=== PATIENT | male | born 1945 | race African-American/Black ===

== ENCOUNTER 2023-12-28 12:17 | Emergency (ER) | payer MEDICARE, OTHER ==
[~2023-12-28] VITALS: Ht 170.2 cm; Wt 77.7 kg
[2023-12-28] MEDS ORDERED: htn PO (12:24)
[2023-12-28] MEDS: KETOROLAC TROMETHAMINE 30 MG/ML VIAL IM ONE (15:58)
[2023-12-28 16:20] LABS: BASOPHILS % (AUTO) 0.8 % (0.0-2.0); EOSINOPHILS % (AUTO) 1.5 % (1.0-6.0); HEMATOCRIT 46.2 % (41-53); HEMOGLOBIN 15.5 g/dL (13.5-17.5); LYMPHOCYTES % (AUTO) 22.3 % (22.0-44.0); MEAN CORPUSCULAR HEMOGLOBIN 30.3 pg (26.0-34.0); MEAN CORPUSCULAR HGB CONC 33.6 G/dL (31.0-37.0); MEAN CORPUSCULAR VOLUME 90 fL (80-100); MONOCYTES # (AUTO) 0.9 K/uL (0.1-1.0); NEUTROPHILS # (AUTO) 5.8 K/uL (1.8-7.7); NEUTROPHILS % (AUTO) 65.4 % (40.0-70.0); PLATELET COUNT (AUTO) 231 K/uL (150-450); RED BLOOD CELL COUNT(AUTO) 5.12 MIL/uL (4.50-5.90); RED CELL DISTRIBUTION WIDTH 14.5 % (11.5-14.5); WHITE BLOOD COUNT (AUTO) 8.9 K/uL (4.5-11.0)
[2023-12-28 16:32] LABS: CALCIUM, TOTAL 9.1 mg/dL (8.8-10.5); CREATININE 1.45 mg/dL (0.60-1.30); POTASSIUM 3.2 mmol/L (3.5-5.1)
[2023-12-28 16:39] LABS: TROPONIN I-HIGH SENSITIVITY 11 ng/L (<76)
[2023-12-28] MEDS: POTASSIUM CHLORIDE 20 MEQ ER TABLET PO ONE (17:40)
[2023-12-28] MEDS: PredniSONE 20 MG TABLET PO ONE (18:39)
[2023-12-28 19:03] VITALS: BP 143/87; PULSE 91; RESP 18; TEMP 98.2
[2023-12-28] MEDS ORDERED: PRED-554 PO (19:04)
[2023-12-28] MEDS ORDERED: TRAM50TA5 PO (19:04)
== END 2023-12-28 19:13 | disposition home or self-care (01) ==
LOC: EMS 12:17
DX: M75.32 Calcific tendinitis of left shoulder (principal); R07.9 Chest pain, unspecified; I10 Essential (primary) hypertension
CPT/HCPCS: 99285; 71046; 80048; 84484; 85025; 36415; 73030; 93005; 96372; J1885; J7512